=== PATIENT | male | born 1995 | race American Indian/Alaskan Native ===

== ENCOUNTER 2022-03-01 02:54 | Emergency (ER) | payer OTHER ==
[2022-03-01] MEDS ORDERED: MVI, Adult with Vitamin K 10 ML, Folic Acid 1 MG, Thiamine 100 MG in Lactated Ringers 1... IV ONE ×4 (02:57)
[2022-03-01 03:42] LABS: ANION GAP 19.2 mEq/L (7-13); CHLORIDE,CL 104 mmol/L (98-107); SODIUM,NA 141 mmol/L (136-145)
[2022-03-01 03:44] LABS: ESTIMATED GFR 98 mL/min (>=60)
== END 2022-03-01 04:30 | disposition home or self-care (01) ==
LOC: DL.ED 02:54
DX: S02.2XXA Fracture of nasal bones, initial encounter for closed fracture (principal); S00.83XA Contusion of other part of head, initial encounter; F10.129 Alcohol abuse with intoxication, unspecified; F17.210 Nicotine dependence, cigarettes, uncomplicated; Y04.0XXA Assault by unarmed brawl or fight, initial encounter
CPT/HCPCS: 36415; 70450; 70486; 72125; 73100; 73600; 80053; 80307; 82150; 83690; 83735; 85025; 96365; 99284; J3411; J7120; J3490

== ENCOUNTER 2023-07-11 12:26 | Emergency (ER) | payer SELFPAY ==
[2023-07-11 14:37] LABS: CORONAVIRUS COVID-19 NAA NEGATIVE (NEGATIVE); INFLUENZA A NAA NEGATIVE (NEGATIVE); INFLUENZA B NAA POSITIVE (NEGATIVE); RESPIRATORY SYNCYTIAL VIR NAA NEGATIVE (NEGATIVE)
== END 2023-07-11 15:15 | disposition home or self-care (01) ==
LOC: DL.ED 12:26
DX: J11.1 Influenza due to unidentified influenza virus with other respiratory manifestations (principal)
CPT/HCPCS: 0241U; 71046; 99282; 99283

== ENCOUNTER 2024-05-13 16:08 | Emergency (ER) | payer MEDICAID ==
[2024-05-13] MEDS: Diphtheria,Pertussis(Acell),Tetanus Vaccine 0.5 ML Syringe IM ONE (16:35)
[2024-05-13] MEDS: ceFAZolin 1 GM Vial IVPUSH ONE (17:57)
[2024-05-13] MEDS: Lidocaine 1% 5 ML VIAL ONE (17:57)
[2024-05-13] MEDS: Take Home: Cephalexin 500 MG Cap, 6 Cap Pack PO ONE (18:53)
== END 2024-05-13 20:00 | disposition home or self-care (01) ==
LOC: DL.ED 16:08
DX: S66.320A Laceration of extensor muscle, fascia and tendon of right index finger at wrist and hand level, initial encounter (principal); Z23 Encounter for immunization; X99.8XXA Assault by other sharp object, initial encounter
CPT/HCPCS: 12032; 73100; 90471; 90715; 96374; 99284; A9270; J0690; J3490